=== PATIENT | male | born 1945 | race African-American/Black ===

== ENCOUNTER 2021-03-04 15:22 | Emergency (ER) | payer BC ==
[2021-03-04 16:06] VITALS: BP 161/96; PULSE 52; TEMP 98; BMI 29.9
== END 2021-03-04 17:16 | disposition home or self-care (01) ==
LOC: JER 15:22
DX: K08.89 Other specified disorders of teeth and supporting structures (principal)
CPT/HCPCS: 99281-25

== ENCOUNTER 2021-03-04 17:24 | Inpatient (IN) | payer BC, OTHER ==
[2021-03-04 18:13] VITALS: BMI 29.5
[2021-03-04] MEDS ORDERED: MAGNESIUM HYDROX 2400MG/30ML ORAL SUSPENSION 30 ML CUP PO PRN (20:19)
[2021-03-04] MEDS ORDERED: ACETAMINOPHEN 325 MG TABLET (FP) PO PRN ×2 (20:19)
[2021-03-04] MEDS ORDERED: IBUPROFEN 400 MG TABLET (FP) PO PRN (20:19)
[2021-03-04] MEDS ORDERED: ONDANSETRON *ODT* 4 MG TABLET SL PRN (20:19)
[2021-03-04] MEDS ORDERED: MAGNESIUM CITRATE 300 ML BOTTLE PO PRN (20:19)
[2021-03-04] MEDS ORDERED: BISMUTH SUBSALICYLATE 524 MG/30 ML PO PRN (20:19)
[2021-03-04] MEDS ORDERED: MAG HYDROX/AL HYDROX/SIMETH 30 ML UNIT-DOSE CUP PO PRN (20:19)
[2021-03-04] MEDS ORDERED: MENTHOL/PHENOL 1 EACH UD MM PRN (20:19)
[2021-03-04] MEDS: MELATONIN 5 MG TABLETS PO SCH (22:26)
[2021-03-04] MEDS: METHOCARBAMOL 500 MG TABLET PO PRN (22:26)
[2021-03-04] MEDS: CLINDAMYCIN HCL 150 MG CAPSULE (FP) PO SCH (22:26)
[2021-03-04] MEDS: THIAMINE HCL 100 MG TABLET (FP) PO SCH (22:27)
[2021-03-04] MEDS ORDERED: cloNIDine HCL 0.1 MG TABLET PO ONE (22:39)
[2021-03-04] MEDS: CHLORHEXIDINE GLUCONATE 0.12% 15ML CUP MM SCH (23:41)
[2021-03-05] MEDS: CLINDAMYCIN HCL 150 MG CAPSULE (FP) PO SCH ×3 (05:52→22:10)
[2021-03-05] MEDS: PRENATAL VITAMINS W/ FOLIC ACID TABLET (FP) PO SCH (10:02)
[2021-03-05] MEDS ORDERED: methaDONE HCL 10 MG TABLET (FOR DETOX USE ONLY) PO ONE (10:27)
[2021-03-05] MEDS ORDERED: PANTOPRAZOLE 20 MG TABLET PO SCH (10:30)
[2021-03-05 10:41] LABS: HEMATOCRIT 32.1 % (35.4-49); HEMOGLOBIN 10.7 GM/dL (11.7-16.9); MCH 29.8 pg (25.7-33.7); MCHC 33.2 g/dl (32.0-35.9); MEAN CELL VOLUME 89.6 fl (80-96); PLATELET COUNT 229 10^3/uL (134-434); RBC 3.58 M/mm3 (4.00-5.60); RDW 15.7 % (11.9-15.9); WHITE BLOOD COUNT 5.8 K/mm3 (4.0-10.0)
[2021-03-05] MEDS: CHLORHEXIDINE GLUCONATE 0.12% 15ML CUP MM SCH ×2 (10:42→22:09)
[2021-03-05 10:48] LABS: ALBUMIN 2.6 g/dl (3.4-5.0); CALCIUM 8.2 mg/dL (8.5-10.1)
[2021-03-05 10:49] LABS: BLOOD UREA NITROGEN 13.2 mg/dL (7-18)
[2021-03-05 10:51] LABS: CREATININE 1.3 mg/dL (0.55-1.3)
[2021-03-05 10:53] LABS: BILIRUBIN,TOTAL 0.6 mg/dL (0.2-1)
[2021-03-05] MEDS ORDERED: POTASSIUM CHLORIDE ORAL LIQUID 20 MEQ/15 ML PO ONE (14:33)
[2021-03-05] MEDS ORDERED: methaDONE HCL 10 MG TABLET (FOR DETOX USE ONLY) ONE (15:46)
[2021-03-05] MEDS: HYDROCHLOROTHIAZIDE 12.5 MG CAPSULE (FP) PO SCH (15:49)
[2021-03-05] MEDS: TIMOLOL 0.25% OPHTHALMIC SOL 5 ML BOTTLE OU SCH ×2 (15:49→22:11)
[2021-03-05] MEDS: METHOCARBAMOL 500 MG TABLET PO PRN ×2 (15:50→22:10)
[2021-03-05] MEDS: FAMOTIDINE 10 MG TABLET PO SCH (15:50)
[2021-03-05] MEDS: POTASSIUM CHLORIDE ORAL LIQUID 20 MEQ/15 ML PO SCH (22:09)
[2021-03-05] MEDS: THIAMINE HCL 100 MG TABLET (FP) PO SCH (22:10)
[2021-03-05] MEDS: LATANOPROST 0.005% OPHTH SOLN 2.5ML BOTTLE OU SCH (22:10)
[2021-03-05] MEDS: ATORVASTATIN CA 40 MG TABLET (FP) PO SCH (22:10)
[2021-03-05] MEDS: RIVAROXABAN 20 MG TABLET PO SCH (22:10)
[2021-03-05] MEDS: MELATONIN 5 MG TABLETS PO SCH (22:10)
[2021-03-06] MEDS: CLINDAMYCIN HCL 150 MG CAPSULE (FP) PO SCH ×3 (07:26→21:24)
[2021-03-06] MEDS ORDERED: methaDONE HCL 10 MG TABLET (FOR DETOX USE ONLY) ONE (09:40)
[2021-03-06] MEDS: METHOCARBAMOL 500 MG TABLET PO PRN (10:21)
[2021-03-06] MEDS: FAMOTIDINE 10 MG TABLET PO SCH (10:21)
[2021-03-06] MEDS: HYDROCHLOROTHIAZIDE 12.5 MG CAPSULE (FP) PO SCH (10:21)
[2021-03-06] MEDS: POTASSIUM CHLORIDE ORAL LIQUID 20 MEQ/15 ML PO SCH ×2 (10:22→21:24)
[2021-03-06] MEDS: TIMOLOL 0.25% OPHTHALMIC SOL 5 ML BOTTLE OU SCH ×2 (10:22→21:26)
[2021-03-06] MEDS: PRENATAL VITAMINS W/ FOLIC ACID TABLET (FP) PO SCH (10:22)
[2021-03-06] MEDS: CHLORHEXIDINE GLUCONATE 0.12% 15ML CUP MM SCH ×2 (10:22→21:26)
[2021-03-06] MEDS: RIVAROXABAN 20 MG TABLET PO SCH (18:22)
[2021-03-06] MEDS: THIAMINE HCL 100 MG TABLET (FP) PO SCH (21:21)
[2021-03-06] MEDS: MELATONIN 5 MG TABLETS PO SCH (21:21)
[2021-03-06] MEDS: ATORVASTATIN CA 40 MG TABLET (FP) PO SCH (21:24)
[2021-03-06] MEDS: LATANOPROST 0.005% OPHTH SOLN 2.5ML BOTTLE OU SCH (21:25)
[2021-03-07] MEDS: CLINDAMYCIN HCL 150 MG CAPSULE (FP) PO SCH ×3 (06:38→22:47)
[2021-03-07] MEDS ORDERED: methaDONE HCL 10 MG TABLET (FOR DETOX USE ONLY) PO ONE (10:00)
[2021-03-07] MEDS: HYDROCHLOROTHIAZIDE 12.5 MG CAPSULE (FP) PO SCH (10:34)
[2021-03-07] MEDS: FAMOTIDINE 10 MG TABLET PO SCH (10:34)
[2021-03-07] MEDS: CHLORHEXIDINE GLUCONATE 0.12% 15ML CUP MM SCH ×2 (10:35→22:49)
[2021-03-07] MEDS: PRENATAL VITAMINS W/ FOLIC ACID TABLET (FP) PO SCH (10:35)
[2021-03-07] MEDS: TIMOLOL 0.25% OPHTHALMIC SOL 5 ML BOTTLE OU SCH ×2 (11:13→22:52)
[2021-03-07] MEDS: RIVAROXABAN 20 MG TABLET PO SCH (17:56)
[2021-03-07] MEDS: LATANOPROST 0.005% OPHTH SOLN 2.5ML BOTTLE OU SCH (22:47)
[2021-03-07] MEDS: ATORVASTATIN CA 40 MG TABLET (FP) PO SCH (22:47)
[2021-03-07] MEDS: MELATONIN 5 MG TABLETS PO SCH (22:47)
[2021-03-07] MEDS: THIAMINE HCL 100 MG TABLET (FP) PO SCH (22:47)
[2021-03-08] MEDS: CLINDAMYCIN HCL 150 MG CAPSULE (FP) PO SCH (05:42)
[2021-03-08 09:12] VITALS: BP 96/60; PULSE 49; TEMP 96.8
== END 2021-03-08 11:21 | disposition home or self-care (01) | DRG 897 ==
LOC: YASAS 17:24 → UNDOADMIN 20:43 → Y3N 20:43
PROVIDERS: ADMIT Allergy & Immunology; ATTEND Allergy & Immunology
PROC: HZ2ZZZZ Detoxification Services for Substance Abuse Treatment (ICD-10-PCS; principal; 2021-03-04)
DX: F11.23 Opioid dependence with withdrawal (principal); I82.501 Chronic embolism and thrombosis of unspecified deep veins of right lower extremity; F17.210 Nicotine dependence, cigarettes, uncomplicated; I10 Essential (primary) hypertension; E78.5 Hyperlipidemia, unspecified; H40.9 Unspecified glaucoma; K21.9 Gastro-esophageal reflux disease without esophagitis; K08.9 Disorder of teeth and supporting structures, unspecified; E87.6 Hypokalemia; R00.1 Bradycardia, unspecified; Z79.01 Long term (current) use of anticoagulants; Z91.14 Patient's other noncompliance with medication regimen; Z56.0 Unemployment, unspecified
CPT/HCPCS: 36415; 80053; 84132; 85027; 86780; C9803; J0735; U0003; U0005